=== PATIENT | female | born 1960 | race Caucasian/White ===

== ENCOUNTER 2017-10-26 22:02 | Emergency (ER) | payer OTHER ==
[2017-10-26 22:34] LABS: BILIRUBIN,URINE NEGATIVE (NEGATIVE); GLUCOSE, URINE (UA) NEGATIVE (NEGATIVE); KETONES,URINE (UA) NEGATIVE (NEGATIVE); LEUKOCYTE ESTERASE, URINE NEGATIVE (NEGATIVE); NITRITE,URINE NEGATIVE (NEGATIVE); OCCULT BLOOD,URINE TRACE-INTA (NEGATIVE); PH,URINE >=9.0 PH (5.0-7.5); PROTEIN,URINE TRACE mg/dL (NEGATIVE); UROBILINOGEN,URINE 0.2 (NORMAL) E.U./dL (NORMAL)
[2017-10-26 22:36] LABS: CLARITY,URINE CLEAR (CLEAR)
[2017-10-26 22:47] LABS: BASOPHILS # (AUTO) 0.1 10^3/uL (0.0-0.1); BASOPHILS % (AUTO) 0.9 %; EOSINOPHILS # (AUTO) 0.1 10^3/uL (0.0-0.7); EOSINOPHILS % (AUTO) 1.8 %; HGB - HEMOGLOBIN 14.1 g/dL (12.0-16.0); LYMPHOCYTES # (AUTO) 2.3 10^3/uL (1.5-3.5); LYMPHOCYTES % (AUTO) 32.6 %; MEAN CORPUSCULAR HEMOGLOBIN 30.9 pg (27.0-31.0); MEAN CORPUSCULAR HGB CONC 34.2 g/dL (32.0-36.0); MEAN CORPUSCULAR VOLUME 90.5 fL (81.0-99.0); MONOCYTES # (AUTO) 0.4 10^3/uL (0.0-1.0); NEUTROPHILS # (AUTO) 4.2 10^3/uL (1.5-6.6); NEUTROPHILS % (AUTO) 58.7 %; PLT - PLATELET COUNT 303 10^3/uL (130-450); RED BLOOD COUNT 4.56 10^6/uL (4.20-5.40); WHITE BLOOD COUNT 7.1 x10^3/uL (4.8-10.8)
[2017-10-26 23:01] LABS: ALBUMIN/GLOBULIN RATIO 1.6 (1.0-2.2); BILIRUBIN,TOTAL 0.7 mg/dL (0.2-1.0); CALCIUM 9.9 mg/dL (8.5-10.3); CREATININE 0.6 mg/dL (0.4-1.0); TOTAL PROTEIN 8.2 g/dL (6.7-8.2)
--- NOTE | 2017-10-26 23:06 | ED Physician Documentation ---
PD HPI ABD PAIN - Stated complaint Stated Complaint: RUQ PX - Chief complaint Chief Complaint: Abd Pain - History obtained from History obtained from: Patient, Family - History of Present Illness Timing - onset: How many days ago (2) Timing - details: Intermittant, Waxing and waning Quality: Aching, Sharp Location: RUQ Radiation: Right flank Improved by: Eating Worsened by: Position Associated symptoms: Nausea. No: Fever, Vomiting, Hematemesis, Diarrhea, Constipation Similar symptoms before: Has not had sx before Recently seen: Not recently seen - Additional information Additional information: Patient is a a 57 year old female with no significant past medical history who is presenting to the emergency department for right upper quadrant pain. Patient states that it has been going on for the last couple of days. Patient states that after she eats she feels uncomfortable. Patient states that she has had some vomiting but denies fever or chills. Review of Systems Constitutional: denies: Fever, Chills Eyes: reports: Reviewed and negative Ears: reports: Reviewed and negative Nose: reports: Reviewed and negative Throat: reports: Reviewed and negative Cardiac: reports: Reviewed and negative Respiratory: reports: Reviewed and negative GI: reports: Abdominal Pain, Nausea, Vomiting. denies: Constipation, Diarrhea : reports: Reviewed and negative Skin: denies: Rash, Lesions Neurologic: reports: Reviewed and negative Psychiatric: reports: Reviewed and negative Immunocompromised: denies: Immunocompromised PD PAST MEDICAL HISTORY - Past Medical History Past Medical History: No Cardiovascular: None Respiratory: Other Neuro: None Endocrine/Autoimmune: None GI: None REGISTERED RESPIRATORY TECHNICIAN: None : None HEENT: None Psych: None Musculoskeletal: None Derm: None - Past Surgical History Past Surgical History: Yes General: Other /REGISTERED RESPIRATORY TECHNICIAN: Breast implants - Present Medications Home Medications: Ambulatory Orders Medication Instructions Recorded Confirmed Ondansetron Odt [Zofran] 4 mg TL Q6H PRN #14 tablet 10/26/17 - Allergies Allergies/Adverse Reactions: Allergies Allergy/AdvReac Type Severity Reaction Status Date / Time No Known Drug Allergies Allergy Verified 10/26/17 22:29 - Social History Does the pt smoke?: No Smoking Status: Never smoker Does the pt drink ETOH?: No Does the pt have substance abuse?: No - Immunizations Immunizations are current?: Yes - POLST Patient has POLST: No PD ED PE NORMAL - Vitals Vital signs reviewed: Yes - General General: Alert and oriented X 3, No acute distress - HEENT HEENT: Atraumatic, Moist mucous membranes - Neck Neck: Supple, no meningeal sign - Cardiac Cardiac: RRR - Respiratory Respiratory: No respiratory distress - Derm Derm: Normal color, Warm and dry, No rash - Extremities Extremities: No deformity, Normal ROM s pain - Neuro Neuro: Alert and oriented X 3, No motor deficit, No sensory deficit, Normal speech Eye Opening: Spontaneous Motor: Obeys Commands Verbal: Oriented GCS Score: 15 - Psych Psych: Normal mood PD ED PE EXPANDED - Abdomen Abdomen: Tender to palpation, RUQ. No: Rebound, Guarding Results - Vitals Vitals: Vital Signs - 24 hr 10/26/17 22:27 Temperature 37.1 C Heart Rate 63 Respiratory 17 Rate Blood Pressure 117/93 H O2 Saturation 100 Oxygen O2 Source Room air - Labs Labs: Laboratory Tests 10/26/17 10/26/17 10/26/17 22:27 22:40 22:40 WBC 7.1 RBC 4.56 Hgb 14.1 Hct 41.3 MCV 90.5 MCH 30.9 MCHC 34.2 RDW 13.0 Plt Count 303 MPV 8.0 Neut # 4.2 Lymph # 2.3 Collier # 0.4 Eos # 0.1 Baso # 0.1 Absolute Nucleated RBC 0.01 Nucleated RBC % 0.1 Sodium 135 Potassium 3.1 L Chloride 97 L Carbon Dioxide 26 Anion Gap 12.0 BUN 14 Creatinine 0.6 Estimated GFR (MDRD) 103 Glucose 119 H Calcium 9.9 Total Bilirubin 0.7 AST 26 ALT 25 Alkaline Phosphatase 77 Total Protein 8.2 Albumin 5.0 Globulin 3.2 Albumin/Globulin Ratio 1.6 Lipase 18 L Urine Color YELLOW Urine Clarity CLEAR Urine pH >=9.0 H Ur Specific [place] 1.010 Urine Protein TRACE Urine Glucose (UA) NEGATIVE Urine Ketones NEGATIVE Urine Occult Blood TRACE-INTA Urine Nitrite NEGATIVE Urine Bilirubin NEGATIVE Urine Urobilinogen 0.2 (NORMAL) Ur Leukocyte Esterase NEGATIVE Ur Microscopic Review NOT INDICATED Urine Culture Comments NOT INDICATED - Rads (name of study) abd ultrasound Radiology: Final report received (possible biliary sludge, normal GB wall, boderline cbd) PD MEDICAL DECISION MAKING - ED course Complexity details: reviewed old records, reviewed results, re-evaluated patient , considered differential, d/w patient, d/w family ED course: Patient was seen and examined at bedside. IV access was gained. labs were drawn. Patient was treated with a fluid bolus, zofran and morphine. Ultrasound was ordered. When patient's diagnostics came back there was no sign of acute cholecystitis. Patient required no further inpatient work up and was stable for discharge with outpatient follow up. Departure - Departure Disposition: 01 Home, Self Care Clinical Impression: Biliary colic Condition: Good Instructions: ED Abdominal Pain Gallstone Poss Follow-Up: Edmund Castillo MD [Provider Admit Priv/Credential] - Prescriptions: Ondansetron Odt [Zofran] 4 mg TL Q6H PRN #14 tablet PRN Reason: Nausea / Vomiting Print Language: Palauan Comments: Your diagnostics today were within normal limits. They are likely secondary to your gallbladder. The first step is to change your diet. You should not eat fatty or fried foods. If your symptoms become for frequent you should follow up with Dr. Hernandez. You can take motrin or tylenol as needed for pain. You may return to the emergency department at any time for new, worsening or uncontrollable symptoms.
--- NOTE | 2017-10-26 23:34 | Ultrasound Preliminary Report ---
Exam: US ABDOMEN LIMITED IMPRESSION: 1. Gallbladder wall thickness is normal and no stones are seen. There may be a trace amount of sludge . 2. Tenderness over the gallbladder of uncertain significance. 3. Mildly dilated common duct measuring up to 6.4 mm. No common duct stone identified. [facility] SITE ID: [id number]
--- NOTE | 2017-10-26 23:34 | Ultrasound Report ---
EXAM: ABDOMEN ULTRASOUND LIMITED, RUQ EXAM DATE: 10/26/2017 11:25 PM. CLINICAL HISTORY: Right upper quadrant pain. COMPARISON: None. TECHNIQUE: Real-time scanning was performed with static images obtained. FINDINGS: Liver: Normal in size and echotexture. 13.3 cm. Main portal vein flow: Hepatopetal. Gallbladder: Wall thickness is normal at 2 mm. No gallstones are identified. Trace amount of sludge. There is tenderness over the gallbladder. Biliary System: CBD measures 6.4 mm. No common duct stone identified. Other: Right kidney measures 9.2 cm and appears normal. Visualized portions of the pancreas are unrem arkable. IMPRESSION: 1. Gallbladder wall thickness is normal and no stones are seen. There may be a trace amount of sludge . 2. Tenderness over the gallbladder of uncertain significance. 3. Mildly dilated common duct measuring up to 6.4 mm. No common duct stone identified. [facility] Referring Provider Line: [phone] SITE ID: [id number]
[2017-10-27 00:02] VITALS: BP 113/75
== END 2017-10-27 00:02 | disposition home or self-care (01) ==
LOC: ED 22:02
DX: K80.50 Calculus of bile duct without cholangitis or cholecystitis without obstruction (principal)
CPT/HCPCS: 36415; 76705; 80053; 81001; 81003; 83690; 85025; 87086; 99283; 99284

== ENCOUNTER 2020-09-15 10:24 | Emergency (ER) | payer OTHER ==
[2020-09-15] MEDS ORDERED: BACITRACIN ZINC OINT 1 PACKET TOP STA (11:09)
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
[2020-09-15] MEDS ORDERED: TETANUS/DIPHTHERIA/PERTUSSIS 0.5 ML SYRINGE IM ONE (11:13)
[2020-09-15 11:30] VITALS: BP 118/63
== END 2020-09-15 11:28 | disposition home or self-care (01) ==
LOC: ED 10:24
DX: S60.551A Superficial foreign body of right hand, initial encounter (principal); W45.8XXA Other foreign body or object entering through skin, initial encounter; Y93.E9 Activity, other interior property and clothing maintenance; Y92.239 Unspecified place in hospital as the place of occurrence of the external cause; Y99.0 Civilian activity done for income or pay; Z23 Encounter for immunization
CPT/HCPCS: 90471; 90715; 99282; 99283; A9270

== ENCOUNTER 2021-03-09 11:35 | Outpatient (CLI) | payer OTHER | END 2021-03-09 11:36 | disposition critical access hospital (66) | LOC: EMS 11:35 | DX: T23.002A Burn of unspecified degree of left hand, unspecified site, initial encounter (principal); T23.001A Burn of unspecified degree of right hand, unspecified site, initial encounter; T22.012A Burn of unspecified degree of left forearm, initial encounter; T22.011A Burn of unspecified degree of right forearm, initial encounter; X17.XXXA Contact with hot engines, machinery and tools, initial encounter; Y93.E2 Activity, laundry; Y92.198 Other place in other specified residential institution as the place of occurrence of the external cause | CPT/HCPCS: A0425; A0429 ==

== ENCOUNTER 2021-03-09 11:54 | Emergency (ER) | payer OTHER ==
[2021-03-09] MEDS ORDERED: BACITRACIN ZINC OINT 1 PACKET TOP STA (12:05)
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
[2021-03-09 12:10] VITALS: BP 108/82
== END 2021-03-09 12:51 | disposition home or self-care (01) ==
LOC: EDSEX → EDUNIT# → ED 11:54
DX: T23.262A Burn of second degree of back of left hand, initial encounter (principal); T22.222A Burn of second degree of left elbow, initial encounter; T22.221A Burn of second degree of right elbow, initial encounter; T31.0 Burns involving less than 10% of body surface; T59.811A Toxic effect of smoke, accidental (unintentional), initial encounter; X00.8XXA Other exposure to uncontrolled fire in building or structure, initial encounter; Y92.128 Other place in nursing home as the place of occurrence of the external cause; Y99.0 Civilian activity done for income or pay
CPT/HCPCS: 1040M; 99282; 99284; A9270

== ENCOUNTER 2021-03-24 02:00 | Emergency (ER) | payer OTHER ==
[2021-03-24 02:14] VITALS: BP 115/67
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
[2021-03-24] MEDS ORDERED: CHERRY SYRUP 10 ML UDC PO ONE (02:46)
[2021-03-24] MEDS ORDERED: metroNIDAZOLE 250 MG TABLET PO STA (02:46)
[2021-03-24] MEDS ORDERED: HYDROcod/ACETAM 5/325 MG TABLET PO STA (02:46)
[2021-03-24] MEDS ORDERED: DEXAMETHASONE 10 MG/ML VIAL PO STA (02:46)
== END 2021-03-24 03:00 | disposition home or self-care (01) ==
LOC: ED 02:00
DX: L71.9 Rosacea, unspecified (principal)
CPT/HCPCS: 99283; 99284; A9270

== ENCOUNTER 2023-03-23 08:00 | Outpatient (CLI) | payer OTHER ==
[2023-03-23 19:36] LABS: CLARITY,URINE CLEAR (CLEAR); LEUKOCYTE ESTERASE, URINE SMALL (NEGATIVE)
[2023-03-23 19:37] LABS: BILIRUBIN,URINE NEGATIVE (NEGATIVE); GLUCOSE, URINE (UA) NEGATIVE (NEGATIVE); KETONES,URINE (UA) NEGATIVE (NEGATIVE); NITRITE,URINE NEGATIVE (NEGATIVE); OCCULT BLOOD,URINE SMALL (NEGATIVE); PH,URINE 5.5 PH (5.0-7.5); PROTEIN,URINE NEGATIVE (NEGATIVE); RBC,URINE 0-5 /HPF (0-5); UROBILINOGEN,URINE 0.2 (NORMAL) E.U./dL (NORMAL)
[2023-03-23 19:38] LABS: BACTERIA,URINE Rare /HPF (None Seen); SQUAMOUS EPITHELIAL CELL,UR FEW Squamous (<= Few)
== END 2023-03-23 23:59 | disposition home or self-care (01) ==
LOC: LAB.N 08:00
PROVIDERS: ATTEND Emergency Medicine
DX: R30.0 Dysuria (principal)
CPT/HCPCS: 81001; 87086